=== PATIENT | female | born 1945 | race American Indian/Alaskan Native ===

== ENCOUNTER 2017-01-13 10:52 | Day surgery (SDC) | payer MEDICARE ==
[~2017-01-13 10:52] MED LIST: IOPIDINE OD ONE; IOPIDINE ONE; MYDRIACYL OD ONE; MYDRIACYL ONE; NEOFRIN OD ONE; NEOFRIN ONE
[2017-01-13] MEDS ORDERED: MYDRIACYL OD ONE (11:40)
[2017-01-13] MEDS ORDERED: IOPIDINE OD ONE ×2 (11:40→12:22)
[2017-01-13] MEDS ORDERED: NEOFRIN OD ONE (11:40)
[2017-01-13 13:46] VITALS: BP 124/76
== END 2017-01-13 12:25 | disposition home or self-care (01) ==
LOC: OR 10:52
PROVIDERS: ATTEND Specialist
DX: E11.36 Type 2 diabetes mellitus with diabetic cataract (principal); H26.491 Other secondary cataract, right eye
CPT/HCPCS: 82962

== ENCOUNTER 2017-01-27 11:04 | Day surgery (SDC) | payer MEDICARE ==
[~2017-01-27 11:04] MED LIST changes: -IOPIDINE OD ONE; -MYDRIACYL OD ONE; -NEOFRIN OD ONE
[2017-01-27] MEDS ORDERED: IOPIDINE OS ONE (11:48)
[2017-01-27] MEDS ORDERED: NEOFRIN OS ONE (11:48)
[2017-01-27] MEDS ORDERED: MYDRIACYL OS ONE (11:48)
[2017-01-27 12:45] VITALS: BP 139/67
== END 2017-01-27 11:05 | disposition home or self-care (01) ==
LOC: OR 11:04
PROVIDERS: ATTEND Specialist
DX: H26.492 Other secondary cataract, left eye (principal)
CPT/HCPCS: 82962